=== PATIENT | female | born 1995 | race Caucasian/White ===

== ENCOUNTER → 2024-05-22 | Outpatient (CLI) | payer OTHER ==
[2024-05-22 16:40] LABS: HCT 33.4 % (37.2-46.3); HGB 10.9 g/dL (12.0-15.0); MCH 31.4 pg (27.0-32.0); MCHC 32.6 g/dL (32.0-37.0); MCV 96.3 FL (80.0-97.0); Mean Platelet Volume 10.1 FL (9.5-12.2); NRBC Per 100 WBC 0 X 10*3/uL (0.00-0.01); Platelet Count 260 X 10*3/uL (140-440); RBC 3.47 X 10*6/uL (4.10-5.20); RDW 13.2 % (11.5-14.5); WBC 7.93 X 10*3/uL (4.50-10.00)
== END | disposition home or self-care (01) ==
LOC: LABWHC1 11:16
PROVIDERS: ATTEND Obstetrics & Gynecology
DX: Z34.82 Encounter for supervision of other normal pregnancy, second trimester
CPT/HCPCS: 36415; 82950; 85027

== ENCOUNTER 2024-07-01 10:50 | Outpatient (CLI) | payer OTHER ==
[2024-07-01 11:20] LABS: Appearance,Urine Clear (Clear); Bilirubin,Urine Negative (Negative); Blood,Urine Negative (Negative); Color,Urine Colorless; Glucose,Urine (UA) Negative (Negative); Ketones,Urine Negative (Negative); Leukocyte Esterase,Urine Negative (Negative); Nitrite,Urine Negative (Negative); PH, Urine 6.5 (5.0-8.0); Protein,Urine Negative (Negative); Specific Gravity,Urine 1.002 (1.001-1.035); Urobilinogen,Urine <2.0 mg/dL (<2.0)
[2024-07-01 11:24] LABS: Basophils % (A) 0 %; Eosinophils # (A) 0.1 k/uL (0-0.7); Eosinophils % (A) 2 %; HGB 11.7 gm/dL (11.4-16.0); Lymphocytes # (A) 1.7 k/uL (1.0-4.8); Lymphocytes % (A) 20 %; MCH 31.8 pg (25.0-35.0); MCHC 34.6 g/dL (31.0-37.0); MCV 91.9 fL (80.0-100.0); Mean Platelet Volume 8.1; Monocytes # (A) 0.7 k/uL (0-1.0); Monocytes % (A) 8 %; Neutrophils # (A) 5.7 k/uL (1.3-7.7); Neutrophils % (A) 69 %; Platelet Count 307 k/uL (150-450); RDW 13.3 % (11.5-15.5); WBC 8.4 k/uL (3.8-10.6)
[2024-07-01 11:35] LABS: ALT 12 U/L (4-34); AST 19 U/L (14-36); African American GFR (CKD) >90 (>60 ml/min/1.73 sqM); Blood Urea Nitrogen 5 mg/dL (7-17); LDH 168 U/L (120-246); Non-African American GFR(CKD) >90 (>60 ml/min/1.73 sqM); Uric Acid 3.7 mg/dL (3.7-7.4)
[2024-07-01 11:58] LABS: Creatinine,Urine Random 13.1 mg/dL; Protein/Creatinine Ratio,Urine 1.069
[2024-07-01 12:41] VITALS: BP 133/77; PULSE 93; RESP 16; TEMP 96.6
--- NOTE | 2024-07-02 09:05 | P.MSEPDOC ---
Presenting Problems - Arrival Data Date of Arrival on Unit: 07/01/24 Time of Arrival on Unit: 10:50 Mode of Transport: Ambulatory - Complaint OB-Reason for Admission/Chief Complaint: Elevated Blood Pressure Comment: marianne wilde bp, pulse and sob, sent from office Medical History - Gestational Age Gestational Age by YUDY (wks/days): 36 Weeks and 1 Days Review of Systems - Review of Systems Constitutional: No problems Breast: No problems ENT: No problems Cardiovascular: No problems Respiratory: No problems Gastrointestinal: No problems Genitourinary: No problems Musculoskeletal: No problems Neurological: No problems Skin: No problems Vital Signs - Temperature Temperature: 96.6 F Temperature Source: Temporal Artery Scan - Pulse Right Sitting Pulse Rate: 93 Pulse Assessment Method: Pulse Oximetry - Respirations Respiratory Rate: 16 Oxygen Delivery Method: Room Air O2 Sat by Pulse Oximetry: 96 - Blood Pressure Right Arm Blood Pressure: 133/77 Blood Pressure Mean: 95 Blood Pressure Source: Automatic Cuff Medical Screen Scoring - Assessment - Baby A Baseline FHR: 140 Heart Rate - NICHD Category: Category I (Normal) NST: Reactive Physician Notification - Physician Notified Physician Notified Date: 07/01/24 Physician Notified Time: 12:21 Physician: Remedios Doran Order Received: Yes (d/c home) Maternal Triage Index - Non-Urgent/Priority 4 Non-Urgent Priority 4: Yes Criteria Met for Priority 4: reactive nst, no contrations, pih labs wnl, ekg wnl, vitals wnl Disposition - Disposition OB Disposition: Discharge to home, Written follow up instructions reviewed Discharge Date: 07/01/24 Discharge Time: 12:30 I agree with the RN Medical Screening Exam: Yes Physician's MSE Comment: I have neither seen nor examined the patient Case reviewed; plan agreed upon as documented in EMR&OBIX.: Yes Diagnosis: RELATED CONDITIONS, UNSPECIFIED, THIRD TRIMESTER
== END 2024-07-01 12:30 | disposition home or self-care (01) ==
LOC: FBPOP 10:50
PROVIDERS: ATTEND Obstetrics & Gynecology
CPT/HCPCS: 59025; 81003; 82565; 82570; 83615; 84156; 84450; 84460; 84520; 84550; 85025; 93005

== ENCOUNTER 2024-08-04 06:05 | Inpatient (IN) | payer OTHER ==
[2024-08-04] MEDS ORDERED: TERBUTALINE 1 MG/ML VIAL SQ PRN (07:14)
[2024-08-04] MEDS ORDERED: miSOPROStoL 200 MCG TAB RECTAL PRN (07:14)
[2024-08-04] MEDS ORDERED: TRANEXAMIC 1,000 MG/100ML-NACL 1,000 MG in EMPTY BAG 1 BAG IV PRN (07:14)
[2024-08-04] MEDS ORDERED: CARBOPROST TROMETHAMINE 250 MCG/ML 1 ML AMP IM PRN (07:14)
[2024-08-04] MEDS ORDERED: miSOPROStoL 200 MCG TAB PO PRN (07:14)
[2024-08-04] MEDS ORDERED: OXYTOCIN 10 UNIT/ML 1 ML VIAL IM PRN (07:14)
[2024-08-04] MEDS ORDERED: METHYLERGONOVINE 0.2 MG/ML 1 ML AMP IM PRN (07:14)
[2024-08-04 07:23] LABS: Basophils % (A) 0 %; Eosinophils # (A) 0.2 k/uL (0-0.7); Eosinophils % (A) 2 %; HGB 11.9 gm/dL (11.4-16.0); Lymphocytes # (A) 2.3 k/uL (1.0-4.8); Lymphocytes % (A) 26 %; MCH 30.3 pg (25.0-35.0); MCHC 33.2 g/dL (31.0-37.0); MCV 91.4 fL (80.0-100.0); Mean Platelet Volume 7.5; Monocytes # (A) 0.7 k/uL (0-1.0); Monocytes % (A) 8 %; Neutrophils # (A) 5.4 k/uL (1.3-7.7); Neutrophils % (A) 61 %; Platelet Count 328 k/uL (150-450); RBC 3.93 m/uL (3.80-5.40); RDW 12.9 % (11.5-15.5); WBC 8.8 k/uL (3.8-10.6)
[2024-08-04] MEDS: LACTATED RINGERS 1,000 ML IV SCH (07:30)
--- NOTE | 2024-08-04 08:30 | US ---
EXAMINATION TYPE: US OB limited DATE OF EXAM: 08/04/2024 COMPARISON: NONE CLINICAL INDICATION: Female, 28 years old with history of To verify position; TECHNIQUE: Transabdominal (TA) with grayscale imaging. FINDINGS: GESTATIONAL AGE / DATING Physician Established: (41 weeks/0 days) EDC: 07/28/2024 SURVEY PRESENTATION: Vertex HEART RATE: 133 bpm RHYTHM: Normal IMPRESSION: Single live gestational age 41 weeks additional information as well. [facility], , 08/04/2024 8:27 AM
--- NOTE | 2024-08-04 08:31 | P.HPOB ---
History of Present Illness H&P Date: 08/04/24 Chief Complaint: induction of labor, post-dates, unstable lie Ms. Jeronimo is a 28 year old at 41 weeks gestation with EDC of 07/28/2024 by LMP consistent with 12 week US who presents for induction of labor for post-dates gestation and unstable lie. The fetus has turned from cephalic to breech 3-4 times in the past few weeks. She was initially scheduled for external cephalic version today but upon presentation to L&D the fetus has again flipped to cephalic presentation. The has otherwise been complicated by an elevated BP at 36 weeks gestation with PIH work-up significant for a urine P:C of 1. Induction of labor at that time was recommended to the patient for 37 weeks, however, she declined. The patient also has a history of a child with a congenital heart defect. She has met with [facility] during this and the fetus underwent ECHO which showed right ductal arch, otherwise findings were within normal limits. The fetus is also noted to have bilateral pyliectasis on US. The fetus should follow up with pediatric cardiology at 1 week of life for reevaluation. Finally, the patient herself has mild intermittent asthma. Obstetric history: 3 FTVD, last complicated by unstable lie and need for ECV at 40-41 weeks with successful vaginal delivery. work-up: blood type A positive, antibody screen negative, rubella immune, VDRL non-reactive, HBsAg negative, HIV negative, HCV AB negative, gonorrhea negative, chlamydia negative, 1 hour GTT wnl, GBS negative. NIPT testing low-risk. Past Medical History Past Medical History: No Reported History History of Any Multi-Drug Resistant Organisms: None Reported Past Surgical History: No Surgical Hx Reported Past Anesthesia/Blood Transfusion Reactions: No Reported Reaction Past Psychological History: Anxiety, Depression Smoking Status: Never smoker Past Drug Use History: None Reported - Past Family History Mother Family Medical History: Hypertension Father Family Medical History: Hypertension Medications and Allergies Home Medications Medication Instructions Recorded Confirmed Type Vit No.179/Iron/Folic 1 tab PO DAILY 07/01/24 08/04/24 History [ Tablet] Allergies Allergy/AdvReac Type Severity Reaction Status Date / Time sulfamethoxazole Allergy Unknown Verified 07/01/24 11:05 [From Bactrim] Childhood trimethoprim [From Bactrim] Allergy Unknown Verified 07/01/24 11:05 Childhood Exam Vital Signs Pulse Resp BP 08/04/24 07:22 97 18 137/67 Intake and Output 08/03/24 08/04/24 08/04/24 22:59 06:59 14:59 Other: Weight 104.326 kg 104.326 kg Focused physical exam is performed. This is a healthy-appearing in no apparent distress. Breathing is non-labored. Abdomen is gravid and non-tender. Cervical exam is 4/60/-3. AROM is undertaken with clear fluid noted. Extremities non-tender and non-edematous. heart tones are Category I and tocometer is not graphing contractions at this time. Results Result Diagrams: 08/04/24 07:05 Assessment and Plan Assessment: 28 year old at 41 weeks gestation here for medical induction of labor for post-dates, pre-eclampsia without severe features (P:C 1, mild range BPs), and unstable lie Plan: Plan of care discussed extensively with the patient. She elects for induction with nipple stimulation and if unsuccessful after a few hours, is willing to try low-dose pitocin. She hopes to avoid epidural, options of IV nubain and nitrous oxide discussed with the patient. Clear liquid diet, continuous monitoring with EFM and tocometer, anticipate vaginal delivery.
[2024-08-04] MEDS: OXYTOCIN 30 UNITS/500 ML NS 30 UNIT in SALINE 1 500ML.BAG IV SCH (12:07)
[2024-08-04] MEDS: NALBUPHINE 10 MG/ML (10 ML MDV) IV PRN (19:31)
[2024-08-04] MEDS: LIDOCAINE 0.5% (PF) 5 MG/ML (50 ML SDV) SQ PRN (21:13)
[2024-08-04] MEDS ORDERED: diphenhydrAMINE 25 MG CAP PO PRN (21:35)
[2024-08-04] MEDS ORDERED: diphenhydrAMINE 50 MG/ML 1 ML VIAL IVP PRN ×2 (21:35)
[2024-08-04] MEDS ORDERED: HYDROCORTISONE 2.5% RECTAL CREAM 30 GM TUBE RECTAL PRN (21:35)
[2024-08-04] MEDS ORDERED: diphenhydrAMINE 50 MG CAP PO PRN (21:35)
[2024-08-04] MEDS ORDERED: ZOLPIDEM 5 MG TAB PO PRN (21:35)
[2024-08-04] MEDS ORDERED: LANOLIN CREAM 1 GM TUBE TOPICAL PRN (21:35)
[2024-08-04] MEDS ORDERED: BENZOCAINE/MENTHOL SPRAY 1 GM/SPRAY AEROSOL TOPICAL PRN (21:35)
[2024-08-04] MEDS ORDERED: SIMETHICONE 80 MG CHEWABLE PO PRN (21:35)
--- NOTE | 2024-08-04 21:35 | P.PROBDLV ---
Vaginal Delivery Note - . Vaginal Delivery Note: DATE OF SERVICE: 08/04/2024 PROCEDURE: Normal Vaginal Delivery ATTENDING: Dr. Remedios Doran MD ESTIMATED BLOOD LOSS: 200 mL FINDINGS: VFI, Apgars 8/9. Weight 8 pounds, 7 ounces (3845 grams) PROCEDURE: Ms. Jeronimo is a 28 year old at 41 weeks presenting to labor and delivery for induction of labor for post-date gestation and unstable lie. The has otherwise been complicated by history of congenital heart defect in sibling with this fetus having a right ductal arch on ECHO. The patient herself also has a history of mild intermittent asthma and heart palpitations. For further details, please review the admitting H&P. AROM was performed at 759 revealing clear amniotic fluid. The patient elected for nipple stimulation with the hand pump instead of pitocin. However, contractions were not increasing in intensity and ultimately the patient agreed to pitocin induction. The patient made slow, steady change throughout the day but ultimately made precipitous change from 7 centimeters to complete in less than 20 minutes. The patient was completely dilated at 2256. A viable female infant was delivered at 2103 before I arrived at the hospital. The was placed on the maternal abdomen and bulb suctioned. Upon arrival, the was in the warmer and the umbilical cord was clamped and cut. Placenta was delivered whole with gentle cord traction at 2111. Oxytocin was started to facilitate uterine tone. Uterine fundus was found to be firm and below the umbilicus upon fundal massage. Thorough examination of the cervix, vagina, periurethral area, and perineum revealed a small first degree perineal laceration that was infiltrated with lidocaine and repaired with 2-0 Vicryl in an interrupted fashion. The patient is stable and allowed to begin the bonding process.
[2024-08-04] MEDS: ACETAMINOPHEN TAB 500 MG TAB PO SCH (22:49)
[2024-08-05] MEDS: IBUPROFEN 800 MG TAB PO SCH (04:55)
[2024-08-05 06:16] LABS: Basophils % (A) 0 %; Eosinophils # (A) 0.1 k/uL (0-0.7); Eosinophils % (A) 1 %; HCT 32.6 % (34.0-46.0); HGB 10.8 gm/dL (11.4-16.0); Lymphocytes % (A) 16 %; MCH 30.3 pg (25.0-35.0); MCV 91.7 fL (80.0-100.0); Mean Platelet Volume 9.3; Monocytes # (A) 1.1 k/uL (0-1.0); Monocytes % (A) 9 %; Neutrophils # (A) 8.6 k/uL (1.3-7.7); Neutrophils % (A) 71 %; Platelet Count 290 k/uL (150-450); RBC 3.56 m/uL (3.80-5.40); RDW 13.1 % (11.5-15.5); WBC 12.1 k/uL (3.8-10.6)
[2024-08-05] MEDS: SENNOSIDES-DOCUSATE SODIUM 1 EACH TAB PO SCH (07:38)
--- NOTE | 2024-08-05 08:13 | P.DS ---
Providers Date of admission: 08/04/24 06:05 Expected date of discharge: 08/05/24 Attending physician: Remedios Doran MD Primary care physician: Stated None Hospital Course: Ms. Jeronimo is a 28 year old PPD#1 s/p normal vaginal delivery after induction of labor for post-dates gestation and unstable lie. The patient is doing well this morning and had no acute events overnight. She has no complaints this morning. She reports minimal lochia, passing flatus, voiding without difficulty, ambulating, and eating/drinking without nausea or vomiting. doing well at bedside, nursing well. She denies chest pain, shortness of breathing, fevers, or chills overnight. She denies pain or swelling in the legs. restrictions are reviewed with the patient including pelvic rest for 6 weeks. The patient is encouraged to call the office if she experiences any heavy bleeding, foul-smelling discharge, breast complaints, or any if she has any other concerns. She will follow up in the office with in 6 weeks for exam. She will go home with Motrin and stool softeners. All questions are answered. Assessment: 28 year old PPD#1 s/p Patient Condition at Discharge: Good Plan - Discharge Summary New Discharge Prescriptions: New Docusate [Colace] 100 mg PO BID PRN #60 capsule PRN Reason: Constipation Ibuprofen [Motrin] 600 mg PO Q6HR PRN #30 tab PRN Reason: Mild Pain (Scale 1 To 3) No Action Vit No.179/Iron/Folic [ Tablet] 1 tab PO DAILY Discharge Medication List Vit No.179/Iron/Folic [ Tablet] 1 tab PO DAILY 07/01/24 [History] Docusate [Colace] 100 mg PO BID PRN #60 capsule 08/05/24 [Rx] Ibuprofen [Motrin] 600 mg PO Q6HR PRN #30 tab 08/05/24 [Rx] Follow up Appointment(s)/Referral(s): Remedios Doran MD [STAFF PHYSICIAN] - 6 Weeks Activity/Diet/Wound Care/Special Instructions: Instructions 1. Do not begin any exercise program for 3 weeks. 2. Do not resume sexual relations for 6 weeks or longer if uncomfortable. 3. You may take tub baths or showers at any time. 4. You may use tampons if desired after 6 weeks. 5. Keep any areas repaired with stitches clean and dry. 6. If you are not nursing, wear a good fitting, supportive bra during the day and limit fluid intake for at least 1 week to prevent breast engorgement. 7. Call the office, , within the next week to make appointment for your 6 week checkup if it has not already been made. 8. Report any of the following occurrences to the doctor promptly: a. Heavy, excessive bleeding b. Chills, fever c. Burning or frequency of urination d. Pain or redness and breasts if nursing e. Increasing pain or swelling of vulva (stitches). In addition to the above instructions, the following additional should be followed: 1. No heavy lifting or straining (exercising) until after 6 week checkup. 2. Keep abdominal incision clean and dry: You may wear a dressing if more comfortable. 3. Make office appointment for 2 weeks after delivery date. Discharge Disposition: HOME SELF-CARE
[2024-08-05 21:40] VITALS: BP 128/78; PULSE 80; RESP 16; TEMP 98.6
== END 2024-08-05 21:30 | disposition home or self-care (01) | DRG 807 ==
LOC: OBSVTOIN 06:05 → 4FBP 06:05
PROVIDERS: ADMIT Obstetrics & Gynecology; ATTEND Obstetrics & Gynecology
PROC: 10E0XZZ Delivery of Products of Conception, External Approach (ICD-10-PCS; principal; 2024-08-04)
PROC: 3E033VJ Introduction of Other Hormone into Peripheral Vein, Percutaneous Approach (ICD-10-PCS; 2024-08-04)
PROC: 10907ZC Drainage of Amniotic Fluid, Therapeutic from Products of Conception, Via Natural or Artificial Opening (ICD-10-PCS; 2024-08-04)
PROC: 0HQ9XZZ Repair Perineum Skin, External Approach (ICD-10-PCS; 2024-08-04)
DX: O48.0 Post-term pregnancy (principal); Z37.0 Single live birth; J45.20 Mild intermittent asthma, uncomplicated; O14.04 Mild to moderate pre-eclampsia, complicating childbirth; O32.0XX0 Maternal care for unstable lie, not applicable or unspecified; O70.0 First degree perineal laceration during delivery; O99.52 Diseases of the respiratory system complicating childbirth; Z3A.41 41 weeks gestation of pregnancy
CPT/HCPCS: 76815; 85025; 86850; 86900; 86901